=== PATIENT | female | born 1955 | race Caucasian/White ===

== ENCOUNTER → 2017-05-13 | Outpatient (CLI) | payer BC ==
--- NOTE | 2017-05-16 07:38 | RADRPT ---
PROCEDURE: Left knee radiographs. CLINICAL INDICATION: Left knee pain. Postop. TECHNIQUE: Three views. Weight bearing. Frontal, lateral, and patellar view. COMPARISON: No prior studies are available for comparison. FINDINGS: There is no fracture or dislocation. The soft tissues are normal. There is a total left knee arthroplasty which appears satisfactory. There is no lytic or blastic lesion. There is no joint effusion. IMPRESSION: 1. Satisfactory postoperative appearance of the left knee. RPTAT: QQ .Pelon Fernandez MD, Date Time Electronically viewed and signed by .Pelon Fernandez MD, on 05/16/2017 07:37 .R/
== END | disposition home or self-care (01) ==
LOC: HKI 14:44
PROVIDERS: ATTEND Orthopaedic Surgery
DX: T84.093D Other mechanical complication of internal left knee prosthesis, subsequent encounter (principal); Y83.8 Other surgical procedures as the cause of abnormal reaction of the patient, or of later complication, without mention of misadventure at the time of the procedure; Z47.1 Aftercare following joint replacement surgery; Z96.652 Presence of left artificial knee joint; M25.562 Pain in left knee
CPT/HCPCS: 73562; G0463